=== PATIENT | female | born 1975 | race Two or more races ===

== ENCOUNTER 2025-01-07 12:10 | Day surgery (SDC) | payer BC, SELFPAY ==
[2025-01-06 14:18] VITALS: BMI 44.7
[2025-01-07] VITALS (12 sets, daily range): BP systolic 111–144; BP diastolic 62–94; PULSE 82–92; RESP 13–23; TEMP 36.6–37.2; O2SAT 93–100; BMI 44.4
[2025-01-07] MEDS: RINGERS LACTATED 1000 ML 1,000 ML 100 ML IV (13:58)
[2025-01-07] MEDS: DiphenhydrAMINE INJ 50 MG/ML VIAL 25 MG IVP (13:59)
[2025-01-07] MEDS: LIDOCAINE JELLY 2% (Urojet) 10 ML TUBE TOP (13:59)
[2025-01-07] MEDS: fentaNYL CIT INJ 50 mCg/ML AMP 2ML (ASD USE ONLY) IVP (14:00)
[2025-01-07] MEDS: MIDAZOLAM INJ 1 MG/ML VIAL 2 ML (ASD USE ONLY) 2 MG IVP (14:01)
== END 2025-01-07 14:45 | disposition home or self-care (01) ==
PROVIDERS: PCP Physician Assistant; Referring Provider Surgery; Visit Provider Surgery
PROC: 0DBE8ZX Excision of Large Intestine, Via Natural or Artificial Opening Endoscopic, Diagnostic (ICD-10-PCS; CPT 45380; principal; 2025-01-07 13:00)
DX: Z12.11 Encounter for screening for malignant neoplasm of colon (principal); D12.2 Benign neoplasm of ascending colon; E11.9 Type 2 diabetes mellitus without complications; I10 Essential (primary) hypertension; K21.9 Gastro-esophageal reflux disease without esophagitis
CPT/HCPCS: 45380; 81025; A4217; J1200; J2250; J3010; J7120